=== PATIENT | male | born 1990 | race Caucasian/White ===

== ENCOUNTER 2023-01-22 16:31 | Emergency (ER) | payer OTHER ==
[2023-01-22] MEDS ORDERED: Ondansetron ODT 4 MG TAB ONE (16:51)
[2023-01-22] MEDS ORDERED: Morphine 4 MG/ML VIAL ONE (16:51)
[2023-01-22] MEDS ORDERED: Lidocaine 4% Topical Sol 50 ML BOT ONE (16:52)
== END 2023-01-22 18:02 | disposition home or self-care (01) ==
LOC: NAV ERS 16:31
DX: S91.331A Puncture wound without foreign body, right foot, initial encounter (principal); F17.290 Nicotine dependence, other tobacco product, uncomplicated; W45.0XXA Nail entering through skin, initial encounter; Y93.89 Activity, other specified; Y92.009 Unspecified place in unspecified non-institutional (private) residence as the place of occurrence of the external cause
CPT/HCPCS: 96372; J2270; Q0162